=== PATIENT | male | born 1980 | race Caucasian/White ===

== ENCOUNTER 2022-05-12 14:05 | Outpatient (CLI) | payer OTHER, SELFPAY ==
[2022-05-12 12:38] LABS: Chloride* 107 mmol/L (96-114); Sodium* 141 mmol/L (135-149)
[2022-05-12 12:41] LABS: Carbon Dioxide* 28 mmol/L (20-32); Cholesterol* 217 mg/dL (90-199); Estimated Glomerular Filt Rate 96 ml/min
[2022-05-12 12:42] LABS: Blood Urea Nitrogen* 14 mg/dL (5-24); Calcium* 9.8 mg/dL (8.4-10.6); Glucose* 106 mg/dL (60-115); HDL Cholesterol* 49 mg/dL (>=40); LDL Cholesterol Calculated 138 mg/dL (<100); Triglycerides* 151 mg/dL (40-149)
== END 2022-05-12 14:06 | disposition home or self-care (01) ==
PROVIDERS: Visit Provider Emergency Medicine
DX: Z00.00 Encounter for general adult medical examination without abnormal findings (principal); E78.5 Hyperlipidemia, unspecified; R73.01 Impaired fasting glucose
CPT/HCPCS: 80048; 80061

== ENCOUNTER 2022-06-06 10:36 | Outpatient (CLI) | payer OTHER, SELFPAY ==
[2022-06-06 12:14] VITALS: BP 124/70; PULSE 112; RESP 16
--- NOTE | 2022-06-06 13:13 | W.PM.STED ---
Stress Test Note Date Time Seen by Provider: 11:58 Date Seen: 06/06/22 Date of test: 06/06/22 Providers Primary care provider: Cynthia Samaniego Stress test physician: Juani Sapp Stress Test Note Stress test ordered: Exercise Stress Test Indication for test: Chest pain Stress test medicine: None Results discussion: Resting EKG: Sinus rhythm, 70 beats per minute flipped T-waves lead V1, flattened in lead 3. Otherwise no acute change noted. Resting blood pressure: 108/78 Stress test: Patient exercised on the treadmill following standard Stuart protocol. He was able to exercise to 9 minutes 34 seconds. Stress test was terminated due to patient reaching his target heart rate, patient reaching maximal tolerated exercise exertion with shortness of breath and calves burning/sore. He had no chest pain. There was no EKG evidence of ischemia. Exercise was equivalent to 11.1 Mets. A maximum heart rate of 172 beats per minute was achieved which was 114% of a calculated target of 150. Rate pressure product was 22,010. Impression: Subjectively negative, objectively negative exercise treadmill Stuart protocol stress test. Follow up suggested: Patient is referred back to his primary care provider. Did discuss with ongoing symptoms or concerns considering Cardiology referral. I will leave this to the patient and his primary care provider to discuss. We did discuss healthy lifestyle, briefly reviewed weight loss as a goal for him. Again, he can review all this further with his primary care provider.
== END 2022-06-06 10:37 | disposition home or self-care (01) ==
PROVIDERS: PCP Emergency Medicine; Visit Provider Family Medicine
DX: R07.9 Chest pain, unspecified (principal)
CPT/HCPCS: 93016; 93017

== ENCOUNTER 2022-08-01 18:18 | Outpatient (CLI) | payer OTHER, SELFPAY | END 2022-08-01 18:19 | disposition home or self-care (01) | LOC: LKVREF 18:19 | PROVIDERS: PCP Emergency Medicine; Visit Provider Emergency Medicine | DX: Z00.00 Encounter for general adult medical examination without abnormal findings (principal); E78.5 Hyperlipidemia, unspecified; R73.01 Impaired fasting glucose | CPT/HCPCS: 80061 ==